=== PATIENT | female | born 1990 | race Two or more races ===

== ENCOUNTER 2018-03-01 03:45 | Inpatient (IN) | payer SELFPAY ==
[~2018-03-01] VITALS: Ht 162.6 cm; Wt 72.6 kg
[2018-03-01] MEDS ORDERED: LACT. RINGERS/OXYTOCIN 20UNITS 1,000 ML IV SCH (04:26)
[2018-03-01] MEDS ORDERED: DERMOPLAST 60ML BOTTLE TOP PRN (04:30)
[2018-03-01] MEDS ORDERED: BUTORPHANOL TARTRATE 2 MG/1 ML VIAL IV PRN (04:30)
[2018-03-01] MEDS ORDERED: CARBOPROST TROMETHAMINE 250 MCG/1ML VIAL IM PRN (04:30)
[2018-03-01] MEDS ORDERED: WITCH HAZEL-GLYCERIN PAD TOP PRN (04:30)
[2018-03-01] MEDS ORDERED: NALBUPHINE HCL 10 MG/1ml INJECTION IM PRN (04:30)
[2018-03-01] MEDS ORDERED: PHISODERM TOP SOLN 240ML BTL TOP PRN (04:30)
[2018-03-01] MEDS ORDERED: LIDOCAINE 2% (LOCAL ANESTH.) PF 5ml SDV ID ONE (04:30)
[2018-03-01] MEDS ORDERED: PROMETHAZINE HCL 25 MG/ML 1ML IM PRN (04:30)
[2018-03-01] MEDS ORDERED: PENICILLIN G POT 5MIL/D5 50ML 50 ML IV ONE ×2 (04:30→04:57)
[2018-03-01] MEDS ORDERED: METHYLERGONOVINE MALEATE 0.2 MG/ML AMP IM PRN (04:30)
[2018-03-01] MEDS: LACTATED RINGER'S 1,000 ML IV SCH ×2 (04:40→12:30)
[2018-03-01 05:19] LABS: Basophils # (auto) 0 uL; Monocytes # (auto) 0.5 uL; Nucleated Red Blood Cells % 0.1 %; White Blood Cell 6.2 10^3/uL (4.4-10.8)
[2018-03-01 05:21] LABS: Basophils % (auto) 0.6 % (0.0-2.0); Eosinophils # (auto) 0.1 uL; Eosinophils % (auto) 0.9 % (0.0-7.0); Hematocrit 36.7 % (36.0-46.0); Lymphocytes # (auto) 1.9 uL; Mean Corpuscular Hgb Conc. 32.7 g/dL (32.0-36.0); Mean Corpuscular Volume 78.2 fL (80.0-100.0); Monocytes % (auto) 7.9 % (0.0-12.0); Neutrophils # (auto) 3.8 uL; Neutrophils % (auto) 60.6 % (37.0-80.0); Red Blood Cells 4.69 10^6/uL (4.0-5.20)
[2018-03-01 05:21] LABS: Urine Bacteria NONE SEEN /hpf (None Seen); Urine Blood Negative /uL (Negative); Urine Specific Gravity 1.007 (1.001-1.035); Urine WBC 4 /hpf (0 - 5)
[2018-03-01 05:25] LABS: Mean Corpuscular Hemoglobin 25.6 pg (28.0-32.0); Platelet Count (auto) 167 10^3/uL (140-450)
[2018-03-01 05:27] LABS: INR 0.91 (0.9-1.15); Partial Thromboplastin Time 27.3 sec (23.78-33.04); Prothrombin Time 9.8 sec (9.27-12.13)
[2018-03-01 05:33] LABS: Albumin 2.8 g/dL (3.4-5.0); BUN/Creatinine Ratio 7.8; Calcium 8.5 mg/dL (8.5-10.1)
[2018-03-01 05:34] LABS: Alcohol, Urine < 3.0 mg/dL (0-5); Amphetamine Screen, Urine NEGATIVE (NEGATIVE); Barbiturate Scree,Urine NEGATIVE (NEGATIVE); Benzodiazephine Screen, Urine NEGATIVE (NEGATIVE); Cannabinoid Screen, Urine NEGATIVE (NEGATIVE); Cocaine Screen, Urine NEGATIVE (NEGATIVE); Opiate Scree,Urine NEGATIVE (NEGATIVE); Phencyclidine Screen, Urine NEGATIVE (NEGATIVE)
[2018-03-01 05:36] LABS: Bilirubin, Total 0.7 mg/dL (0.2-1.0); Total Protein 7.1 g/dL (6.4-8.2)
[2018-03-01] MEDS ORDERED: PROMETHAZINE HCL 25 MG/ML 1ML ONE (07:23)
[2018-03-01] MEDS: PENICILLIN G POTASSIUM 2,500,000 UNITS in D5W 5% 50 ML IV SCH ×2 (08:32→12:30)
[2018-03-01 16:00] VITALS: BP 133/69
[2018-03-01] MEDS ORDERED: INFLUENZA QUAD 2018-2019 0.5 ML SYRG IM ONE (17:15)
[2018-03-01 18:45] VITALS: BP 137/66
[2018-03-01] MEDS ORDERED: PREN27TA7 OR (20:48)
[2018-03-01 23:00] VITALS: BP 119/57
[2018-03-02] MEDS: IBUPROFEN 600 MG TAB PO PRN (02:05)
[2018-03-02 03:00] VITALS: BP 107/53
[2018-03-02 05:10] LABS: RPR Non Reactive (Non Reactive)
[2018-03-02 07:04] VITALS: BP 104/54
[2018-03-02 11:00] VITALS: BP 115/55
[2018-03-02 15:00] VITALS: BP 121/59
[2018-03-02 18:51] VITALS: BP 116/57
[2018-03-02 23:00] VITALS: BP 104/69
[2018-03-03 03:10] VITALS: BP 114/53
[2018-03-03 07:30] VITALS: BP 109/54
[2018-03-03] MEDS: IBUPROFEN 600 MG TAB PO PRN (09:07)
[2018-03-03 11:00] VITALS: BP 126/61
[2018-03-03] MEDS ORDERED: INFLUENZA QUAD 2018-2019 0.5 ML SYRG IM ONE (12:00)
== END 2018-03-03 14:55 | disposition home or self-care (01) | DRG 807 ==
LOC: LDRP 03:45 → OBSVTOIN 03:45 → LDRP 04:41
PROVIDERS: ADMIT Obstetrics & Gynecology; ATTEND Obstetrics & Gynecology
PROC: 10D07Z6 Extraction of Products of Conception, Vacuum, Via Natural or Artificial Opening (ICD-10-PCS; principal; 2018-03-01)
PROC: 0KQM0ZZ Repair Perineum Muscle, Open Approach (ICD-10-PCS; 2018-03-01)
PROC: 0W8NXZZ Division of Female Perineum, External Approach (ICD-10-PCS; 2018-03-01)
DX: O42.92 Full-term premature rupture of membranes, unspecified as to length of time between rupture and onset of labor (principal); Z37.0 Single live birth; O70.1 Second degree perineal laceration during delivery; Z3A.38 38 weeks gestation of pregnancy
CPT/HCPCS: 36415; 59025; 76805; 80053; 80307; 81001; 81002; 85025; 85610; 85730; 86592; 86703; 86762; 86850; 86900; 86901; 87340; 94762; 96361; 96365; 96372; 96375; G0378; J2001; J2540; J2590; J7060